=== PATIENT | female | born 2000 | race Caucasian/White ===

== ENCOUNTER → 2025-02-14 09:36 | Outpatient (BNVA) | payer OTHER, SELFPAY | PROVIDERS: PCP Family Medicine; Visit Provider Family Medicine | DX: N92.6 Irregular menstruation, unspecified (principal); E66.01 Morbid (severe) obesity due to excess calories; R94.6 Abnormal results of thyroid function studies; R51.9 Headache, unspecified; G89.29 Other chronic pain; Z13.6 Encounter for screening for cardiovascular disorders | CPT/HCPCS: 80053; 80061; 83001; 83002; 83036; 83525; 84146; 84403; 84439; 84443; 84481; 85025; 86376 ==

== ENCOUNTER → 2025-03-12 09:46 | Outpatient (BNVA) | payer BC, SELFPAY | PROVIDERS: PCP Family Medicine; Visit Provider Family Medicine | DX: Z12.4 Encounter for screening for malignant neoplasm of cervix (principal); Z11.59 Encounter for screening for other viral diseases; Z11.8 Encounter for screening for other infectious and parasitic diseases | CPT/HCPCS: 87491; 87591; 87624; 87661 ==